=== PATIENT | male | born 2005 | race Caucasian/White ===

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

== ENCOUNTER 2025-01-17 14:19 | Emergency (ER) | payer OTHER, SELFPAY ==
[2025-01-17 14:23] VITALS: BP 144/91
--- NOTE | 2025-01-17 15:32 | ED.GENMED ---
History of Present Illness
General
Chief Complaint: Anxiety
Source: patient
Exam Limitations: none
Time Seen by Provider: 01/17/25 15:16
History of Present Illness
History of Present Illness:
19-year-old male recurring episodes of disequilibrium nausea vomiting foggy feeling. This has been on almost a daily basis since he had a vertebral dissection last November 2023. He is on Eliquis but not always faithful. He has not taken it in a
week. Currently feels close to baseline. Does not think he is followed up with neurology as brought up in the last ED visit. Feels that when these episodes happen it makes him anxious and there may be an anxiety can
Past History
Past History
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
Social History
Tobacco: Non-smoker
Alcohol: None
Drug: None
Personal: Single
Living: with family
Review of Systems
Review of Systems
All Other Systems: Not applicable
Cardiac: Reports no symptoms
Neurological: Denies headache or weakness
Phy Exam
Physical Exam
Physical Exam:
GENERAL: Alert and oriented in no apparent distress
EYE: Orbits normal.
NECK: Supple, no carotid bruit
ENT: Pharynx without erythema
CARDIAC: Regular rate and rhythm without any obvious murmurs.
LUNGS: Clear breath sounds,normal
ABDOMEN: Soft, without focal tenderness or distention
NEUROLOGICAL: Alert and oriented , cranial nerves II through XII intact. Speech normal. Oqnyko-sa-[id number] normal. Gait normal.
SKIN: Warm and dry, no rash or lesion, no discoloration, skin intact.
MUSCULOSKELETAL: No edema,no deformity.Good color
PSYCH: Normal and appropriate interaction.
Course
Orders/Labs/Results
Orders:
Orders
01/17/25 15:32
Electrocardiogram (*1) Stat
Reason for Study: Other
Other Reason for Exam: neuro symptoms
CT Head & Neck Angio W/wo IV Urgent
Comment:
Reason For Exam: Disequilibrium nausea. History of CVA/dissection
EKG- Treatment ONCE
IV Insert/Care/Rem.- Treatment PRN
0.9% Sodium Chloride 500 ml [Nss] 500 ml IV BOLUS
01/17/25 15:40
Basic Metabolic Panel Urgent
Complete Blood Count/With Diff Urgent
Abnormal Lab Results
01/17/25
15:40
Absolute Neuts (auto) 7.3 H 10^3/uL
(1.4-6.5)
Absolute Monos (auto) 0.7 H 10^3/uL
(0.1-0.6)
Lymphocytes % 19.4 L %
(20.5-51.1)
Glucose 100 H mg/dl
(70-99)
01/17/25 15:40
01/17/25 15:40
Vital Signs
Initial and Last Documented VS:
Initial Vital Signs
Temp Pulse Resp BP Pulse Ox
98.4 F 81 18 144/91 98
01/17/25 14:23 01/17/25 14:23 01/17/25 14:23 01/17/25 14:23 01/17/25 14:23
Last Documented Vital Signs
Temp Pulse Resp BP Pulse Ox
98.4 F 47 16 144/73 100
01/17/25 14:23 01/17/25 18:29 01/17/25 18:29 01/17/25 18:29 01/17/25 18:29
MDM/Problems Addressed
Differential Diagnosis Includes:
Relatively low suspicion for acute neurologic process. He is neurologically stable. These have been recurring on a daily basis for over a year. However despite the low suspicion the only way I can be sure that there is no further dissection would
be to repeat CTA. Risk-benefit discussed with the patient.
*Radiology
Radiology exam reviewed: radiology read reviewed (No acute findings on CT angiography)
*EKG
Interpreted by ED Provider?: Yes
Interpretation: abnormal
Comparison EKG: no changes
Heart Rate: 48
Rate: bradycardiac
Rhythm: sinus
[place]: normal axis
Interval: normal interval
QRS Pattern: normal QRS
*Critical Care Note
Total Time (30-74mins, 75-104mins- exclusive of procedures): Not Applicable
Data Reviewed
Review of Other/Old Records Reveals: Labs, Records, Radiology Studies and Testing
Update Note
Update Note:
Medically stable. Neurologic exam stable. Nothing acute. Been an ongoing issue. Does need neurology follow-up and discussion on Eliquis. This was discussed with the patient
ED Attending Note
-
Portions of this chart may have been created with voice recognition software.� Occasional wrong word or��sound alike� substitutions may have occurred due to the inherent limitations of voice recognition software.
Discharge Plan
Departure
Patient Disposition: Home (Routine Discharge)
Date of Disposition: 01/17/25
Time of Disposition: 19:20
Patient with high blood pressure during this ER visit?: Yes
Discharge Problem:
Intermittent dizziness, History of left vertebral artery dissect, History of cerebellar CVA
Instructions: Dizziness in adults - ED discharge instructions, BLOOD PRESSURE
Prescriptions:
No Action
Eliquis 5 mg Tablet
5 mg PO BID 30 Days Qty: 60 0RF
Referrals:
Lan Ordonez MD [Family Provider] -
Aiden Kovacs MD [Active] -
Activity Restrictions/Additional Instructions:
If you have a regular neurologist now, you should call them first thing tomorrow morning for close follow-up.
Also as we discussed discussed your Eliquis
I listed another neurologist in case you do not have 1
I strongly encourage you to follow-up closely with neurology
Return with any progression of symptoms or issues
Interventions
Interventions:
*Risk Screen - Suicide Last Done: 01/17/25 14:23
*General Assessment Last Done: 01/17/25 14:23
*Neglect/Abuse Screening Last Done: 01/17/25 14:23
*ED- Fall Risk Assessment Last Done: 01/17/25 15:40
*ED COVID-19 Vaccine History Last Done: 01/17/25 15:40
ED-Psychological Assessment Last Done: 01/17/25 16:07
Discharge Date and Time
Print Language: ITALIAN
[2025-01-17 15:39] VITALS: BMI 22.4
[2025-01-17] MEDS: NSS 500 IV (15:41)
[2025-01-17 15:53] LABS: % Basophils 0.3 % (0-2); % Eosinophils 1.8 % (0-6); % Immature Granulocytes 0.2 % (0-0.5); % Lymphocytes 19.4 % (20.5-51.1); % Monocytes 7.1 % (1.7-9.3); % Neutrophils 71.2 % (42.2-75.2); Absolute Eosinophils 0.2 10^3/uL (0-0.7); Absolute Monocytes 0.7 10^3/uL (0.1-0.6); Absolute Neutrophils 7.3 10^3/uL (1.4-6.5); Hematocrit 43.1 % (39.0-52.0); Hemoglobin 14.7 g/dL (13.0-18.0); Mean Corp Hgb Conc. 34.1 g/dL (33.0-37.0); Mean Corpuscular Hgb 29.2 pg (27.0-31.0); Mean Corpuscular Volume 85.7 fL (80.0-94.0); Mean Platelet Volume 9.7 fL (7.4-10.4); Nucleated Red Blood Cells % 0 % (-); Platelet Count 324 10^3/uL (130-400); Red Blood Cell Count 5.03 10^6/uL (4.70-6.10); Red Cell Dist. Width 12.8 % (11.5-14.5); White Blood Cell Count 10.3 10^3/uL (4.8-10.8)
[2025-01-17 16:04] LABS: Blood Urea Nitrogen 13 mg/dl (9-20); Calcium 10.1 mg/dl (8.4-10.2); Carbon Dioxide 25 mmol/L (22-30); Chloride 103 mmol/L (98-107); Estimated Creatinine Clearance > 125 ml/min; Glucose 100 mg/dl (70-99); Potassium 4.3 mmol/L (3.5-5.1); Sodium 136 mmol/L (135-145); eGFR > 60.00
[2025-01-17 16:30] VITALS: BP 128/66
[2025-01-17 18:29] VITALS: BP 144/73
== END 2025-01-17 19:32 | disposition home or self-care (01) ==
LOC: EMR 14:19
PROVIDERS: EMERGENCY PHYSICIAN Emergency Medicine; FAMILY PHYSICIAN Family Medicine
DX: R42 Dizziness and giddiness (principal); Z86.73 Personal history of transient ischemic attack (TIA), and cerebral infarction without residual deficits; Z79.01 Long term (current) use of anticoagulants
CPT/HCPCS: 96360; 99284; 70496; 70498; 80048; 85025; 93005; Q9967

== ENCOUNTER 2025-01-20 09:42 | Emergency (ER) | payer OTHER, SELFPAY ==
[2025-01-20 09:51] VITALS: BMI 22.4
[2025-01-20 09:54] VITALS: BP 142/90
[2025-01-20 10:18] LABS: % Basophils 0.5 % (0-2); % Eosinophils 5.6 % (0-6); % Immature Granulocytes 0.3 % (0-0.5); % Lymphocytes 31.1 % (20.5-51.1); % Monocytes 6.2 % (1.7-9.3); % Neutrophils 56.3 % (42.2-75.2); Absolute Eosinophils 0.4 10^3/uL (0-0.7); Absolute Lymphocytes 2.3 10^3/uL (1.2-3.4); Absolute Monocytes 0.5 10^3/uL (0.1-0.6); Absolute Neutrophils 4.1 10^3/uL (1.4-6.5); Hematocrit 47.4 % (39.0-52.0); Mean Corp Hgb Conc. 33.8 g/dL (33.0-37.0); Mean Corpuscular Hgb 29.6 pg (27.0-31.0); Mean Corpuscular Volume 87.6 fL (80.0-94.0); Mean Platelet Volume 9.7 fL (7.4-10.4); Nucleated Red Blood Cells % 0 % (-); Platelet Count 320 10^3/uL (130-400); Red Blood Cell Count 5.41 10^6/uL (4.70-6.10); Red Cell Dist. Width 12.8 % (11.5-14.5); White Blood Cell Count 7.3 10^3/uL (4.8-10.8)
[2025-01-20 10:27] LABS: INR 0.98; PT 13.5 Sec (11.4-14.6)
[2025-01-20] MEDS: NSS 1000 IV (10:27)
[2025-01-20 10:28] LABS: APTT 31.5 Sec (23.4-35.0)
--- NOTE | 2025-01-20 10:29 | CM ---
DENISE was consulted to discuss Eliquis cost. CM called patient's pharmacy and confirmed patient has filled ELiquis for almost a year. Patient stated that he has 'bottles' of Eliquis and periodically takes them. CM confirmed that patient's copay was $0.
CM updated Dr. Salvador.
[2025-01-20 10:31] LABS: ALT (SGPT) 33 U/L (0-50); AST (SGOT) 25 U/L (17-59); Albumin 5.2 g/dl (3.5-5.0); Alkaline Phosphatase 73 U/L (38-126); Blood Urea Nitrogen 15 mg/dl (9-20); Calcium 10.2 mg/dl (8.4-10.2); Carbon Dioxide 30 mmol/L (22-30); Chloride 104 mmol/L (98-107); Estimated Creatinine Clearance > 125 ml/min; Glucose 101 mg/dl (70-99); Potassium 4.9 mmol/L (3.5-5.1); Sodium 143 mmol/L (135-145); Total Bilirubin 0.5 mg/dl (0.2-1.3); Total Protein 7.8 g/dl (6.3-8.2); eGFR > 60.00
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
[2025-01-20 11:00] VITALS: BP 131/73
[2025-01-20 11:51] VITALS: BP 134/73
[2025-01-20] MEDS: ANTIVERT 25 MG PO (13:19)
== END 2025-01-20 13:21 | disposition home or self-care (01) ==
LOC: EMR 09:42
PROVIDERS: EMERGENCY PHYSICIAN Emergency Medicine; FAMILY PHYSICIAN Family Medicine
DX: R42 Dizziness and giddiness (principal); Z86.73 Personal history of transient ischemic attack (TIA), and cerebral infarction without residual deficits; Z91.148 Patient's other noncompliance with medication regimen for other reason; Z60.2 Problems related to living alone; Z86.79 Personal history of other diseases of the circulatory system
CPT/HCPCS: 99284; 96360; 80053; 85025; 85610; 85730; 93005

== ENCOUNTER 2025-01-22 14:27 | Emergency (ER) | payer OTHER, SELFPAY ==
[2025-01-22 14:43] VITALS: BP 158/97
[2025-01-22 15:04] LABS: % Basophils 0.3 % (0-2); % Eosinophils 2.3 % (0-6); % Immature Granulocytes 0.2 % (0-0.5); % Lymphocytes 23.1 % (20.5-51.1); % Monocytes 5.2 % (1.7-9.3); % Neutrophils 68.9 % (42.2-75.2); Absolute Eosinophils 0.2 10^3/uL (0-0.7); Absolute Lymphocytes 2.1 10^3/uL (1.2-3.4); Absolute Monocytes 0.5 10^3/uL (0.1-0.6); Absolute Neutrophils 6.4 10^3/uL (1.4-6.5); Hematocrit 46.8 % (39.0-52.0); Mean Corp Hgb Conc. 34.2 g/dL (33.0-37.0); Mean Corpuscular Hgb 29.1 pg (27.0-31.0); Mean Corpuscular Volume 85.2 fL (80.0-94.0); Mean Platelet Volume 9.3 fL (7.4-10.4); Nucleated Red Blood Cells % 0 % (-); Platelet Count 321 10^3/uL (130-400); Red Blood Cell Count 5.49 10^6/uL (4.70-6.10); Red Cell Dist. Width 12.4 % (11.5-14.5); White Blood Cell Count 9.2 10^3/uL (4.8-10.8)
[2025-01-22 15:10] LABS: INR 1.14; PT 14.9 Sec (11.4-14.6)
[2025-01-22 15:11] LABS: APTT 33.5 Sec (23.4-35.0)
[2025-01-22 15:16] LABS: ALT (SGPT) 31 U/L (0-50); AST (SGOT) 26 U/L (17-59); Albumin 5.4 g/dl (3.5-5.0); Alkaline Phosphatase 69 U/L (38-126); Blood Urea Nitrogen 18 mg/dl (9-20); Calcium 10.2 mg/dl (8.4-10.2); Carbon Dioxide 28 mmol/L (22-30); Chloride 102 mmol/L (98-107); Glucose 106 mg/dl (70-99); Potassium 4.2 mmol/L (3.5-5.1); Sodium 142 mmol/L (135-145); Total Bilirubin 1.1 mg/dl (0.2-1.3); Total Protein 8.4 g/dl (6.3-8.2); eGFR > 60.00
[2025-01-22 15:28] LABS: Troponin I < 0.012 ng/ml
[2025-01-22 15:43] VITALS: BP 159/79
[2025-01-22 15:44] VITALS: BMI 22.0
[2025-01-22 16:00] VITALS: BP 157/97
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
== END 2025-01-22 17:30 | disposition home or self-care (01) ==
LOC: EMR 14:27
PROVIDERS: EMERGENCY PHYSICIAN Student in an Organized Health Care Education/Training Program; FAMILY PHYSICIAN Family Medicine
DX: R53.1 Weakness (principal); R20.2 Paresthesia of skin; I77.74 Dissection of vertebral artery; Z79.01 Long term (current) use of anticoagulants; Z86.73 Personal history of transient ischemic attack (TIA), and cerebral infarction without residual deficits; Z91.199 Patient's noncompliance with other medical treatment and regimen due to unspecified reason
CPT/HCPCS: 99283; 80053; 84484; 85025; 85610; 85730; 93005

== ENCOUNTER 2025-01-30 20:12 | Emergency (ER) | payer OTHER, SELFPAY ==
[2025-01-30 20:19] VITALS: BP 135/76
[2025-01-30 21:10] VITALS: BMI 22.4
--- NOTE | 2025-01-30 22:29 | ED.GENMED ---
History of Present Illness
General
Chief Complaint: Anxiety
Source: patient
Exam Limitations: none
Time Seen by Provider: 01/30/25 22:18
History of Present Illness
History of Present Illness:
See MDM
Past History
Past History
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
Social History
Tobacco: Non-smoker
Alcohol: None
Drug: None
Personal: Single
Living: with family
Phy Exam
Physical Exam
Physical Exam:
See MDM
Course
Orders/Labs/Results
Orders:
Orders
01/30/25 22:29
Lorazepam [Ativan] 1 mg PO NOW STA
Vital Signs
Initial and Last Documented VS:
Initial Vital Signs
Temp Pulse Resp BP Pulse Ox
98 F 69 16 135/76 97
01/30/25 20:19 01/30/25 20:19 01/30/25 20:19 01/30/25 20:19 01/30/25 20:19
Last Documented Vital Signs
Temp Pulse Resp BP Pulse Ox
98 F 69 16 135/76 97
01/30/25 20:19 01/30/25 20:19 01/30/25 20:19 01/30/25 20:19 01/30/25 20:19
MDM/Problems Addressed
Differential Diagnosis Includes:
HPI and MDM Narrative:
19-year-old male presenting for evaluation of anxiety. Patient states he felt overwhelmed when he was doing his taxes. Went into the room, patient sitting in bed comfortably. He does recognize that he has been using the emergency department were
frequently for mental health related issues. We did go over his current stressors. He has tried therapy but did not like that specific therapist. He has more appointment scheduled next week. I offered crisis to evaluate him but he states he has
been evaluated by crisis before and currently declined. He denies suicidal or homicidal ideations. Patient seems hesitant to be on medicines as he fears this would stop he from being able to own firearms. We discussed that in the state of
[place] that he is referring to being on a 302. He currently does not require inpatient psychiatric care. Will give dose of Ativan and discussed follow-up with PCP and therapist
Physical exam
General: Well appearing and non-toxic
HEENT: protecting airway. Pupils equal and reactive
Neck: appears supple
CV: No evidence of cyanosis. Regular rate and rhythm
Resp: No accessory muscle use
Abd: Non-distended
Extremities: No deformities
Neuro: alert
Psych: Normal affect
Skin: Intact
Problems Addressed including Acute and Chronic Conditions affecting care:
1. Anxiety
Acuity: acute
Prognosis: stable
Details: Discussed having this evaluated by therapy and PCP. He declined crisis evaluation
Differential Diagnosis (but not limited to): Anxiety, stress, depression
Testing considered: Blood work
Drug therapy (if applicable): OTC meds, please see d/c instruction regarding Rx drugs
Amount and/or Complexity of Data Reviewed
Clinical info obtained from: Patient
External data reviewed: N/A
Labs I independently reviewed (but not limited to): N/A
Radiology: N/A
Pulse Ox: not hypoxic
EKG independently reviewed: N/A
Cheesemaker: N/A
Critical Care: N/A
Risk of Complication:
Social Determinants of health: Good social support
Discussed with other providers: N/A
Escalation of Care includes Admit/Obs: After being observed in the Emergency Department, pt stable for discharge.
Occasional wrong word or 'sound a like' substitutions may have occurred due to the inherent limitations of voice recognition software. Read the chart carefully and recognize, using context, where substitutions have occurred.
*Critical Care Note
Total Time (30-74mins, 75-104mins- exclusive of procedures): Not Applicable
ED Attending Note
-
Portions of this chart may have been created with voice recognition software.� Occasional wrong word or��sound alike� substitutions may have occurred due to the inherent limitations of voice recognition software.
Discharge Plan
Departure
Patient Disposition: Home (Routine Discharge)
Date of Disposition: 01/30/25
Time of Disposition: 22:32
Patient with high blood pressure during this ER visit?: No
Discharge Problem:
Stress response
Prescriptions:
No Action
Eliquis 5 mg Tablet
5 mg PO BID 30 Days Qty: 60 0RF
meclizine 25 mg tablet
25 mg PO TID PRN (Reason: dizziness) Qty: 14 0RF
Referrals:
Lan Ordonez MD [Family Provider] -
Activity Restrictions/Additional Instructions:
Please return for any worsening symptoms.
You may return at any time if you have further concerns.
Please follow up with your doctor and therapist at first available appointment.
Thank you for choosing [facility].
Interventions
Interventions:
*Risk Screen - Suicide Last Done: 01/30/25 20:22
*General Assessment Last Done: 01/30/25 21:11
*Neglect/Abuse Screening Last Done: 01/30/25 20:22
*ED- Fall Risk Assessment Last Done: 01/30/25 21:11
*ED COVID-19 Vaccine History Last Done: 01/30/25 21:11
ED-Psychological Assessment Last Done: 01/30/25 21:11
Discharge Date and Time
Print Language: UPPER SORBIAN
[2025-01-30] MEDS: ATIVAN 1 MG PO (22:35)
== END 2025-01-30 22:37 | disposition home or self-care (01) ==
LOC: EMR 20:12
PROVIDERS: EMERGENCY PHYSICIAN Student in an Organized Health Care Education/Training Program; FAMILY PHYSICIAN Family Medicine
DX: F43.9 Reaction to severe stress, unspecified (principal)
CPT/HCPCS: 99283

== ENCOUNTER 2025-02-15 15:14 | Outpatient (RCR) | payer OTHER, SELFPAY | END 2025-02-15 23:59 | disposition home or self-care (01) | LOC: RPT 15:14 | PROVIDERS: ATTENDING PHYSICIAN Family Medicine | DX: H81.4 Vertigo of central origin (principal); Z73.6 Limitation of activities due to disability; I77.74 Dissection of vertebral artery; I69.328 Other speech and language deficits following cerebral infarction; I69.310 Attention and concentration deficit following cerebral infarction; I69.311 Memory deficit following cerebral infarction; I69.321 Dysphasia following cerebral infarction; I69.318 Other symptoms and signs involving cognitive functions following cerebral infarction | CPT/HCPCS: 92507; 92523; 97110; 97112; 97163 ==

== ENCOUNTER 2025-04-06 09:58 | Emergency (ER) | payer OTHER, SELFPAY ==
[2025-04-06 10:01] VITALS: BP 149/88
[2025-04-06 12:10] VITALS: BP 117/70
[2025-04-06 12:15] VITALS: BP 133/73
[2025-04-06 12:30] VITALS: BP 126/70
[2025-04-06 12:45] VITALS: BP 123/72
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
== END 2025-04-06 13:20 | disposition home or self-care (01) ==
LOC: EMR 09:58
PROVIDERS: EMERGENCY PHYSICIAN Emergency Medicine; FAMILY PHYSICIAN Family Medicine
DX: R51.9 Headache, unspecified (principal); Z79.01 Long term (current) use of anticoagulants
CPT/HCPCS: 99282

== ENCOUNTER 2025-07-22 07:12 | Outpatient (RCR) | payer OTHER, SELFPAY | END 2025-07-22 23:59 | disposition home or self-care (01) | LOC: RPT 07:12 | PROVIDERS: ATTENDING PHYSICIAN Otolaryngology Facial Plastic Surgery; FAMILY PHYSICIAN Family Medicine | DX: R42 Dizziness and giddiness (principal); Z73.6 Limitation of activities due to disability; R51.9 Headache, unspecified | CPT/HCPCS: 97110; 97163 ==

== ENCOUNTER 2025-08-26 16:59 | Outpatient (RCR) | payer OTHER, SELFPAY | END 2025-08-26 23:59 | disposition home or self-care (01) | LOC: RPT 16:59 | PROVIDERS: ATTENDING PHYSICIAN Otolaryngology Facial Plastic Surgery; FAMILY PHYSICIAN Family Medicine | DX: R42 Dizziness and giddiness (principal); Z73.6 Limitation of activities due to disability; R51.9 Headache, unspecified | CPT/HCPCS: 97010; 97110; 97112; 97140 ==

== ENCOUNTER 2025-09-08 16:54 | Outpatient (RCR) | payer OTHER, SELFPAY | END 2025-09-08 23:59 | disposition home or self-care (01) | LOC: RPT 16:54 | PROVIDERS: ATTENDING PHYSICIAN Otolaryngology Facial Plastic Surgery; FAMILY PHYSICIAN Family Medicine | DX: R42 Dizziness and giddiness (principal); Z73.6 Limitation of activities due to disability; R51.9 Headache, unspecified; I69.398 Other sequelae of cerebral infarction | CPT/HCPCS: 97530 ==